=== PATIENT | female | born 1995 | race African-American/Black ===

== ENCOUNTER 2019-01-26 14:09 | Emergency (ER) | payer SELFPAY ==
[2019-01-26 14:40] LABS: #Lymphocytes 2.1 thou/uL (1.20-3.40); #Monocytes 0.5 thou/uL (0.11-0.59); #Neutrophils 1.6 thou/uL (1.40-6.50); %Basophils 0.5 % (0.0-1.0); %Eosinophils 0.6 % (0.0-10.0); %Lymphocytes 48.9 % (21.0-51.0); %Monocytes 12.4 % (0.0-10.0); %Neutrophils 37.6 % (42.0-75.0); Mean Corpuscular HGB CONC 32.1 g/dL (32.0-36.0); Mean Corpuscular Hemoglobin 31.9 pg (27.0-31.0); Mean Corpuscular Volume 99.3 fL (78.0-98.0); Mean Platelet Volume 9.6 fL (7.4-10.4); Platelet Count 174 thou/uL (130-400); Red Blood Cell (RBC) Count 4.69 mill/uL (4.20-5.40); White Blood Cell (WBC) Count 4.3 thou/uL (4.8-10.8)
[2019-01-26 14:47] LABS: BHCG - Serum Negative (NEGATIVE); Pregs Control Background? CLEAR/WHITE (CLR/WHITE); Pregs Control Bar Appear? YES (CONTROL BAR)
[2019-01-26 15:00] LABS: ALT (SGPT) 11 U/L (8-55); AST (SGOT) 26 U/L (5-34); Albumin 4.1 g/dL (3.5-5.0); Alkaline Phosphatase 59 U/L (40-150); Anion Gap 11 mmol/L (10-20); BUN (Urea Nitrogen) 13 mg/dL (7.0-18.7); Bilirubin, Total 0.2 mg/dL (0.2-1.2); Calc. Creatinine Clearance 0 mL/min (70-130); Calcium 8.9 mg/dL (7.8-10.44); Carbon Dioxide 28 mmol/L (22-29); Chloride 104 mmol/L (98-107); Estimated GFR-MDRD Greater than 90; Glucose 90 mg/dL (70-105); Lipase 18 U/L (8-78); Potassium 3.9 mmol/L (3.5-5.1); Protein, Total 7.1 g/dL (6.0-8.3); Sodium 139 mmol/L (136-145)
[2019-01-26] MEDS ORDERED: Loperamide HCl 2 MG CAP ONE (15:19)
[2019-01-26] MEDS ORDERED: Ondansetron ODT 8 MG TAB ONE (15:19)
--- NOTE | 2019-01-26 15:28 | RAD ---
RADIOGRAPH CHEST 2 VIEWS: HISTORY: A 23-year-old female with fever and anorexia. FINDINGS: The lungs are clear. The cardiomediastinal silhouette and hilar shadows are normal. There is no ple ural effusion. The osseous structures appear normal. There is no pneumothorax. IMPRESSION: Normal. jn [] POS: [facility]
[2019-01-26 15:49] LABS: Bilirubin Negative (Negative); Blood, Urine Large (Negative); Clarity CLOUDY (Clear); Glucose, Urine (Dipstick) Negative (Negative); Leukocyte Moderate (Negative); Nitrite Negative (Negative); Protein, Urine (Dipstick) 30 mg/dL (Neg-Trace); Urobilinogen 0.2 mg/dL (0.2-1.0)
[2019-01-26 15:51] LABS: Bacteria/HPF Rare-Few HPF (None Seen); Hyaline Casts/LPF 7-10 HYALINE CAST LPF (0-3 Hyaline); RBC/HPF GREATER THAN 50-TNTC HPF (0-3); WBC/HPF 21-50 HPF (0-3)
== END 2019-01-26 16:35 | disposition home or self-care (01) ==
LOC: ERS 14:09
DX: N39.0 Urinary tract infection, site not specified (principal)
CPT/HCPCS: 36415; 71046; 80053; 81003; 81015; 83690; 84703; 85025; 87086

== ENCOUNTER 2019-04-25 09:04 | Emergency (ER) | payer OTHER, SELFPAY ==
[2019-04-25 10:04] LABS: #Basophils 0.1 thou/uL (0.0-0.2); #Eosinphils 0.4 thou/uL (0.0-0.7); #Lymphocytes 1.8 thou/uL (1.20-3.40); #Monocytes 0.7 thou/uL (0.11-0.59); #Neutrophils 6.3 thou/uL (1.40-6.50); %Basophils 0.6 % (0.0-1.0); %Eosinophils 4.4 % (0.0-10.0); %Lymphocytes 19.3 % (21.0-51.0); %Monocytes 7.1 % (0.0-10.0); %Neutrophils 68.7 % (42.0-75.0); Hemoglobin 13.7 g/dL (12.0-16.0); Mean Corpuscular HGB CONC 33.6 g/dL (32.0-36.0); Mean Corpuscular Hemoglobin 32.8 pg (27.0-31.0); Mean Corpuscular Volume 97.7 fL (78.0-98.0); Mean Platelet Volume 8.9 fL (7.4-10.4); Platelet Count 218 thou/uL (130-400); RBC Distribution Width 11.9 % (11.5-14.5); Red Blood Cell (RBC) Count 4.19 mill/uL (4.20-5.40); White Blood Cell (WBC) Count 9.2 thou/uL (4.8-10.8)
[2019-04-25 10:13] LABS: Bilirubin Large (Negative); Blood, Urine Large (Negative); Clarity CLOUDY (Clear); Glucose, Urine (Dipstick) Negative (Negative); Leukocyte Moderate (Negative); Nitrite Positive (Negative); Protein, Urine (Dipstick) > or equal to 300 mg/dL (Neg-Trace); Specific Gravity, Urine 1.026 (1.002-1.036); pH, Urine 6.5 (5.0-9.0)
[2019-04-25 10:15] LABS: Bacteria/HPF Rare-Few HPF (None Seen); Hyaline Casts/LPF 0-3 HYALINE CAST LPF (0-3 Hyaline); Squamous Epithelial None Seen HPF (0-3); WBC/HPF None Seen HPF (0-3)
--- NOTE | 2019-04-25 11:01 | ULT ---
PELVIC ULTRASOUND: Date: 04/25/19 COMPARISON: None. HISTORY: female with vaginal bleeding. TECHNIQUE: Multiplanar Hawley scale and color Doppler images were obtained in a transabdominal and transvaginal pe lvic ultrasound. Spectral analysis of the Doppler waveforms of the ovaries performed. FINDINGS: No is seen within the uterus. The uterus is normal in appearance without focal abnormality. Endometrial stripe was not seen as it is very thin. There is a small amount of free fluid in the pelvis. Both ovaries are normal in size and appearance a nd demonstrate normal internal flow. No suspicious lesion is seen in either adnexal region for an ect opic . IMPRESSION: No evidence of intrauterine or ectopic . POS: [facility]
[2019-04-25] MEDS ORDERED: Morphine 4 MG/ML VIAL ONE (11:39)
[2019-04-25] MEDS ORDERED: Ondansetron ODT 4 MG TAB ONE (11:40)
[2019-04-25] MEDS ORDERED: Misoprostol 200 MCG TAB VAG SCH (12:45)
== END 2019-04-25 15:45 | disposition home or self-care (01) ==
LOC: ERS 09:04
DX: O02.1 Missed abortion (principal)
CPT/HCPCS: 36415; 76856; 81003; 81015; 84702; 85025; 86900; 86901; 88305; 96372; J2270; Q0162